=== PATIENT | female | born 1990 | race Caucasian/White ===

== ENCOUNTER 2018-05-23 12:20 | Emergency (ER) | payer MEDICAID ==
[2018-05-23] MEDS ORDERED: METOCLOPRAMIDE 10 MG/2 ML VIAL IVP ONE (13:11)
[2018-05-23] MEDS ORDERED: LR 1,000 ML IV ONE (13:11)
--- NOTE | 2018-05-23 13:11 | EDPHY ---
General Time Seen by Provider: 05/23/18 13:01 Narrative: CHIEF COMPLAINT: Migraine HISTORY OF PRESENT ILLNESS: Patient presents by private vehicle with complaints of migraine. She reports left hemiplegia headache. She has had migraine type headaches in the past and this is consistent with previous headaches. Was [id number] over the past 2-3 weeks, increasing severity yesterday. Some photophobia. No fever. No neck pain or stiffness. She has had some nausea in 2 episodes of vomiting today. No abdominal pain. No pelvic pain. No vaginal bleeding or discharge. She is 12 weeks with 1st care on Saturday. No other associated complaints or modifying factors. REVIEW OF SYSTEMS: 10 systems were reviewed and negative with the exception of the elements mentioned in the history of present illness. PCP: None SPECIALISTS: Pending gynecology follow-up with [facility] PAST MEDICAL HISTORY: Migraine headaches. PAST SURGICAL HISTORY: No recent surgeries SOCIAL HISTORY: Never smoker. 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 well appearing Head: normocephalic, atraumatic Eyes: Pupils equal and round, no conjunctival pallor or injection. No nystagmus. EOM symmetric. ENT, Mouth: Mucous membranes moist Neck: Normal inspection, supple, non-tender. No meningismus or rigidity. Respiratory: Lungs are clear to auscultation Cardiovascular: Regular rate and rhythm. No murmur Gastrointestinal: Abdomen is soft and nontender. No tympany rigidity. Back: non-tender, no bony abnormalities Neurological: GCS 15. A&O, nonfocal, normal gait Skin: Warm and dry, no rash Extremities: Nontender, no pedal edema Psychiatric: Mood and affect normal DIFFERENTIAL DIAGNOSES: Including but not limited to meningitis, cluster headache, migraine headache, subarachnoid hemorrhage, subdural hematoma, dehydration, MDM: 1:10 p.m. Left-sided hemiplegic migraine in patient with known migraine headaches. No sudden onset. No thunderclap headache. Her neck is supple. Her vital signs are within normal limits, there is no signs of acute illness. She has vomited twice but no indication of hyperemesis gravidarum. I have ordered laboratory studies due to her with vomiting, Reglan and Benadryl for her headache. She is resting comfortably in no acute distress. 2:05 p.m. Patient re-evaluated. She is feeling significantly better at this time. Headache has decreased to a 2/10. She somnolent from the medications but no longer nauseated or vomiting. 3:00 p.m. Patient re-evaluated. She is feeling significantly better. She is tolerating intake by mouth. No headache. No nausea. No other complaints this time. She would like to go home. I do feel it is reasonable to do so. I will provide medications for nausea. She has an appointment on Saturday with OB to establish care. We discussed ED precautions for return of symptoms, neck pain or stiffness, fever or persistent vomiting. Discharged home stable condition. SUPERVISION: Patient was independently examined, but I discussed the case with my secondary supervising physician Dr. Nelson CONSULTATION: None - History Smoking Status: Never smoked - Objective Vital Signs: Initial Vital Signs Temperature (C) 98.1 F 05/23/18 12:23 Heart Rate 90 05/23/18 12:23 Respiratory Rate 16 05/23/18 12:23 Blood Pressure 115/76 05/23/18 12:23 O2 Sat (%) 99 05/23/18 12:23 O2 Delivery Mode Room Air O2 (L/minute) 2 Allergies/Adverse Reactions: No Known Allergies Allergy (Unverified 05/23/18 12:22) Home Medications: Medication Instructions Recorded Metoclopramide [Reglan 10 mg tab 10 mg PO Q8 PRN #6 tab 05/23/18 (*)] 05/23/18 Promethazine HCl [Phenergan 25mg 25 mg PO Q8 PRN #12 tab 05/23/18 (*)] Laboratory Results: Laboratory Results 05/23/18 13:20 05/23/18 13:20 05/23/18 05/23/18 13:20 13:20 WBC 9.37 10^3/uL 10^3/uL (3.80-9.50) RBC 3.90 10^6/uL L 10^6/uL (4.18-5.33) Hgb 12.3 g/dL L g/dL (12.6-16.3) Hct 34.5 % L % (38.0-47.0) MCV 88.5 fL fL (81.5-99.8) MCH 31.5 pg pg (27.9-34.1) MCHC 35.7 g/dL g/dL (32.4-36.7) RDW 11.9 % % (11.5-15.2) Plt Count 173 10^3/uL 10^3/uL (150-400) MPV 11.8 fL H fL (8.7-11.7) Neut % (Auto) 77.6 % H % (39.3-74.2) Lymph % (Auto) 14.8 % L % (15.0-45.0) Coffey % (Auto) 6.2 % % (4.5-13.0) Eos % (Auto) 1.0 % % (0.6-7.6) Baso % (Auto) 0.1 % L % (0.3-1.7) Nucleat RBC Rel Count 0.0 % % (0.0-0.2) Absolute Neuts (auto) 7.27 10^3/uL H 10^3/uL (1.70-6.50) Absolute Lymphs (auto) 1.39 10^3/uL 10^3/uL (1.00-3.00) Absolute Monos (auto) 0.58 10^3/uL 10^3/uL (0.30-0.80) Absolute Eos (auto) 0.09 10^3/uL 10^3/uL (0.03-0.40) Absolute Basos (auto) 0.01 10^3/uL L 10^3/uL (0.02-0.10) Absolute Nucleated RBC 0.00 10^3/uL 10^3/uL (0-0.01) Immature Gran % 0.3 % % (0.0-1.1) Immature Gran # 0.03 10^3/uL 10^3/uL (0.00-0.10) Sodium 135 mEq/L mEq/L (135-145) Potassium 3.7 mEq/L mEq/L (3.3-5.0) Chloride 104 mEq/L mEq/L (97-110) Carbon Dioxide 23 mEq/l mEq/l (22-31) Anion Gap 8 mEq/L mEq/L (8-16) BUN 5 mg/dL L mg/dL (7-23) Creatinine 0.4 mg/dL L mg/dL (0.6-1.0) Estimated GFR > 60 Glucose 83 mg/dL mg/dL (70-100) Calcium 9.3 mg/dL mg/dL (8.5-10.4) Lipase 31 IU/L IU/L (23-300) Medications Given: Discontinued Medications Diphenhydramine HCl (Benadryl Injection) 50 mg IVP EDNOW ONE Stop: 05/23/18 13:12 Last Admin: 05/23/18 13:34 Dose: 50 mg Lactated Ringer's (Lr) 1,000 mls @ 500 mls/hr IV EDNOW ONE Stop: 05/23/18 15:10 Last Admin: 05/23/18 13:20 Dose: 1,000 mls Metoclopramide HCl (Reglan Injection) 10 mg IVP EDNOW ONE Stop: 05/23/18 13:12 Last Admin: 05/23/18 13:34 Dose: 10 mg Departure - Departure Disposition: Home, Routine, Self-Care Clinical Impression: Nausea/vomiting in Migraine aura, persistent Qualifiers: Status migrainosus presence: without status migrainosus Intractability: not intractable Qualified Code(s): G43.509 - Persistent migraine aura without cerebral infarction, not intractable, without status migrainosus Condition: Good Instructions: Hyperemesis Gravidarum (ED), Migraine Headache (ED), Acute Headache (ED) Additional Instructions: 1. Nausea medications as prescribed as needed 2. Reglan as prescribed as needed. Recommend that you take this with Benadryl. Do not combine with promethazine 3. Contact primary care physician on-call as provided 4. Keep your appointment on Saturday with OB to establish care 5. ED precautions for sudden change in headache, neck pain or stiffness, fever, vomiting that is refractory to medication Referrals: Ana Greene MD [Medical Doctor] - As per Instructions Prescriptions: Metoclopramide [Reglan 10 mg tab (*)] 10 mg PO Q8 PRN #6 tab PRN Reason: Headache Promethazine HCl [Phenergan 25mg (*)] 25 mg PO Q8 PRN #12 tab PRN Reason: Nausea/Vomiting, Use 1st
[2018-05-23 13:42] LABS: PLATELET COUNT 173 10^3/uL (150-400)
[2018-05-23 15:18] VITALS: BP 103/58
== END 2018-05-23 15:18 | disposition home or self-care (01) ==
DX: O99.351 Diseases of the nervous system complicating pregnancy, first trimester (principal); G43.409 Hemiplegic migraine, not intractable, without status migrainosus; Z3A.12 12 weeks gestation of pregnancy
CPT/HCPCS: 96374; J1200; J2765

== ENCOUNTER → 2018-07-07 | Outpatient (CLI) | payer MEDICAID | LOC: FIMAGING 12:54 | PROVIDERS: ATTEND Obstetrics & Gynecology | DX: O09.892 Supervision of other high risk pregnancies, second trimester (principal); O30.032 Twin pregnancy, monochorionic/diamniotic, second trimester; Z3A.19 19 weeks gestation of pregnancy ==

== ENCOUNTER → 2018-07-22 | Outpatient (CLI) | payer MEDICAID | LOC: FIMAGING 08:55 | PROVIDERS: ATTEND Obstetrics & Gynecology | DX: Z36.89 Encounter for other specified antenatal screening (principal); O30.032 Twin pregnancy, monochorionic/diamniotic, second trimester; Z3A.21 21 weeks gestation of pregnancy ==

== ENCOUNTER 2018-07-27 05:24 | Observation (INO) | payer MEDICAID ==
[2018-07-27] MEDS: ONDANSETRON 4 MG/2 ML VIAL IVP PRN ×2 (06:00→11:49)
[2018-07-27] MEDS ORDERED: D5W LR 1,000 ML IV ONE (06:00)
[2018-07-27] MEDS ORDERED: PROMETHAZINE HCL 25 MG/ML INJ IVP PRN (06:16)
[2018-07-27] MEDS ORDERED: LR 500 ML IV SCH (08:00)
--- NOTE | 2018-07-27 12:36 | GHP ---
DATE OF ADMISSION: 07/27/2018 ADMITTING DIAGNOSIS: Intrauterine at 23-3/7 weeks' gestation with monochorionic-diamniotic twins and viral gastroenteritis. HISTORY OF PRESENT ILLNESS: The patient is a 28-year-old, 1, para 0, who is 23-3/7 weeks' [facility] with an EDC of 11/27/2018. And she is with mono-di twin boys. She reports having a rich and heavy dinner on the night of the and waking in the middle night with severe nausea, vom iting, abdominal cramps and pain as well as diarrhea. She had episodes of diarrhea and then started vomiting, having uncontrolled retching, vomiting bile, and even notice some blood in her vomit. She presented to Labor and Delivery for evaluation. On evaluation, she is afebrile but somewhat tachycar dic with a heart rate between 100 and 110s, normal blood pressure. Doptones are normal x2 in t he 140s. She is not hamzah. The patient received IV fluid bolus with an LR bolus and running D 5. She received IV Zofran and also IV Phenergan and has episodes where she is feeling better, but th en when she gets up to move, has recurrent episodes of vomiting and is unable to tolerate p.o. fluids or solids at this point. Her is complicated by mono-di twins. She has been followed by [facility] as well as jointly with [facility]. Level 2 ultrasound has been nor mal for both twins, and she has normal genetic screening. On the most recent ultrasound for growth, the twins had a 13% discordance. She is followed with two 2-week screenings for twin-twin transfusio n syndrome with RORO and MCA Dopplers, growth every 4 weeks, and will be followed closely in the . All of her testing thus far has been reassuring. PAST MEDICAL HISTORY: No significant past medical history. PAST SURGICAL HISTORY: No significant past surgical history. ALLERGIES: No known drug allergies. CURRENT MEDICATIONS: Only current medications include vitamins. OBJECTIVE: VITAL SIGNS: As above. ABDOMEN: heart tones on Dopplers x2. Bedside ultrasound: Active babies x2. Normal mono-di twins. No obstetrical complaints. PELVIC: No vaginal bleeding, leakage of fluid or contractions. LABORATORY DATA: She only had a chemistry done initially which was normal. Sodium 137, potassium 4. 3, chloride 109, carbon dioxide 20, BUN 16, creatinine 0.5, glucose 128, and calcium was 8.5. I am s ending a UA when possible, and if she does not respond quickly to the above therapies, we will add a CBC. ASSESSMENT AND PLAN: Currently, a 28-year-old, 1, para 0, at 23-3/7 weeks' gestation with mo nochorionic-diamniotic twins and viral gastroenteritis. We will continue intravenous fluids, Zofran, Phenergan, and Imodium as needed, hopefully giving her time to feel better before we need to do othe r aggressive therapies. /[id number]/MODL
[2018-07-27] MEDS ORDERED: ACETAMINOPHEN 500 MG TAB PO ONE (13:50)
[2018-07-27 14:18] LABS: PLATELET COUNT 176 10^3/uL (150-400)
== END 2018-07-27 15:10 | disposition home or self-care (01) ==
LOC: FLD 05:24
PROVIDERS: ADMIT Obstetrics & Gynecology; ATTEND Obstetrics & Gynecology
DX: O98.512 Other viral diseases complicating pregnancy, second trimester (principal); O30.032 Twin pregnancy, monochorionic/diamniotic, second trimester; Z3A.23 23 weeks gestation of pregnancy
CPT/HCPCS: G0378; J2405; J2550

== ENCOUNTER → 2018-07-31 | Outpatient (CLI) | payer MEDICAID | LOC: FIMAGING 08:38 | PROVIDERS: ATTEND Obstetrics & Gynecology | DX: O30.032 Twin pregnancy, monochorionic/diamniotic, second trimester (principal); Z3A.23 23 weeks gestation of pregnancy ==

== ENCOUNTER → 2018-09-22 | Outpatient (CLI) | payer MEDICAID | LOC: FIMAGING 11:24 ==

== ENCOUNTER → 2018-09-24 | Outpatient (CLI) | payer MEDICAID | LOC: FIMAGING 07:05 | PROVIDERS: ATTEND Obstetrics & Gynecology | DX: R10.9 Unspecified abdominal pain (principal); Z87.442 Personal history of urinary calculi ==